=== PATIENT | female | born 1940 | race Caucasian/White ===

== ENCOUNTER → 2019-12-15 | Outpatient (CLI) | payer MEDICARE ==
[~2019-12-15] MED LIST: ACTONEL150 MG PO; COLACE100 MG PO; CYPROHEPTADINE H4 MG PO; DESLORATADINE5 MG PO; DIGOXIN125 MCG PO; DOCUSATE SODIU100 MG PO; HYDROXYCHLOROQ200 MG PO; LEVOTHYROXINE100 MC1 PO; LEVOTHYROXINE50 MCG PO; LISINOPRIL5 MG PO; METOPROLOL SUCC25 MG PO; NORCO 5-325 TA1 EACH PO; PLAVIX75 MG PO; PREDNISONE5 MG PO; TIZANIDINE HCL4 M1 PO; TOPROL XL25 MG PO; XARELTO20 MG PO; Z.0.BACTRIM DS TAB1 PO; Z.0.HYDROXYCHLOROQ20 PO; Z.0.LEVOTHYROXINE125 PO; Z.0.PREDNISONE5 MG PO
== END ==
LOC: RAD 11:01
PROVIDERS: ATTEND Internal Medicine
DX: I50.9 Heart failure, unspecified (principal)
CPT/HCPCS: 93306

== ENCOUNTER 2020-03-21 14:57 | Inpatient (IN) | payer MEDICARE ==
[~2020-03-21] VITALS: Ht 167.6 cm; Wt 46.8 kg
[2020-03-21 16:35] LABS: BASOPHILS % 0.3 % (0.0-1.0); EOSINOPHILS % 0.1 % (0.0-6.0); HEMATOCRIT 37.6 % (34.2-44.1); HEMOGLOBIN 11.2 g/dL (12.0-16.0); LYMPHOCYTES # (AUTO) 0.6 (1.0-3.2); LYMPHOCYTES % 4.8 % (18.0-39.1); MEAN CORPUSCULAR HEMOGLOBIN 29.9 pg (28-32); MEAN CORPUSCULAR HGB CONC 29.8 g/dL (31-35); MEAN CORPUSCULAR VOLUME 100.5 fL (81-99); MONOCYTES # (AUTO) 0.6 (0.2-0.8); MONOCYTES % 4.7 % (4.4-11.3); NEUTROPHILS # (AUTO) 12.1 (2.1-6.9); NEUTROPHILS % 89.6 % (38.7-80.0); PLATELET COUNT 308 x10e3/uL (140-360); RED BLOOD COUNT 3.74 x10e6/uL (3.6-5.1); RED CELL DISTRIBUTION WIDTH 13.2 % (11.7-14.4)
[2020-03-21 16:47] LABS: INR 1.12
[2020-03-21 16:55] LABS: ALBUMIN 3.1 g/dL (3.5-5.0); ALBUMIN/GLOBULIN RATIO 0.8 (0.8-2.0); ANION GAP 17.1 mmol/L (8-16); CALCIUM 8.9 mg/dL (8.4-10.2); CREATININE, SERUM 2.08 mg/dL (0.57-1.11); POTASSIUM 5.1 mmol/L (3.5-5.1)
[2020-03-21] MEDS ORDERED: DIATRIZOATE MEGL/DIATRIZOA SOD 30 ML BTL PO ONE (17:18)
[2020-03-21] MEDS ORDERED: DEXTROSE 50% SYRINGE 50 ML IV PRN (17:45)
[2020-03-21] MEDS ORDERED: FAMOTIDINE20 MG PO (19:16)
[2020-03-21] MEDS ORDERED: ARICEPT5 MG PO (19:16)
[2020-03-21] MEDS ORDERED: ULTRAM50 MG PO (19:16)
[2020-03-21] MEDS ORDERED: ALENDRONATE SOD70 MG PO (19:16)
[2020-03-21] MEDS ORDERED: CITRATE OF MAGNESIA 300ML BOTTLE PO ONE (20:00)
[2020-03-21] MEDS ORDERED: MINERAL OIL 132 ML BTL PR ONE (20:00)
[2020-03-21] MEDS ORDERED: SODIUM CHLORIDE 0.9% 1000ML 1,000 ML IV STA (22:06)
[2020-03-21 22:10] LABS: CREATINE KINASE MB 4.5 ng/mL (0-5.0)
[2020-03-21 23:08] LABS: CLARITY,URINE CLOUDY (CLEAR); COLOR,URINE AMBER (YELLOW); KETONES,URINE TRACE (NEGATIVE); LEUKOCYTE ESTERASE ,URINE SMALL (NEGATIVE); NITRITE,URINE NEGATIVE (NEGATIVE); PROTEIN,URINE DIPSTICK >=300 (NEGATIVE); URINE UROBILINOGEN 1 mg/dL (0.2 - 1)
[2020-03-21 23:16] LABS: BACTERIA,URINE FEW /HPF; EPITHELIAL CELLS,URINE MODERATE /LPF
[2020-03-21 23:17] LABS: YEAST,URINE MODERATE
[2020-03-21] MEDS: INSULIN LISPRO 100 UNIT/1 ML 3ML VIAL SQ SCH (23:23)
[2020-03-22] MEDS: CEFTRIAXONE SOD 1 GM/NS 50 ML 50 ML IV SCH (00:46)
[2020-03-22 01:19] LABS: CREATINE KINASE MB 3.7 ng/mL (0-5.0)
[2020-03-22 05:52] LABS: BASOPHILS % 0.2 % (0.0-1.0); HEMATOCRIT 32.5 % (34.2-44.1); HEMOGLOBIN 9.6 g/dL (12.0-16.0); LYMPHOCYTES % 8.6 % (18.0-39.1); MEAN CORPUSCULAR HEMOGLOBIN 29.5 pg (28-32); MEAN CORPUSCULAR HGB CONC 29.5 g/dL (31-35); MONOCYTES % 8.3 % (4.4-11.3); NEUTROPHILS # (AUTO) 9.8 (2.1-6.9); NEUTROPHILS % 82.2 % (38.7-80.0); PLATELET COUNT 262 x10e3/uL (140-360); RED BLOOD COUNT 3.25 x10e6/uL (3.6-5.1); RED CELL DISTRIBUTION WIDTH 13.3 % (11.7-14.4)
[2020-03-22 06:17] LABS: CREATINE KINASE MB 3.8 ng/mL (0-5.0)
[2020-03-22] MEDS: SODIUM CHLORIDE 0.9% 1000ML 1,000 ML IV SCH ×2 (06:37→19:03)
[2020-03-22] MEDS ORDERED: SODIUM CHLORIDE 0.9% 1000ML 1,000 ML ONE (06:41)
[2020-03-22 06:55] LABS: ALBUMIN 2.8 g/dL (3.5-5.0); ALBUMIN/GLOBULIN RATIO 0.8 (0.8-2.0); ANION GAP 16.2 mmol/L (8-16); CREATININE, SERUM 1.68 mg/dL (0.57-1.11); POTASSIUM 4.2 mmol/L (3.5-5.1)
[2020-03-22] MEDS: INSULIN LISPRO 100 UNIT/1 ML 3ML VIAL SQ SCH ×4 (07:57→20:59)
[2020-03-22 08:12] LABS: HYPOCHROMASIA SLIGHT; OVALOCYTES FEW; RBC MORPHOLOGY COMMENT NORMAL
[2020-03-22] MEDS: DIGOXIN 0.125 MG TAB PO SCH (08:54)
[2020-03-22] MEDS: PANTOPRAZOLE 40 MG 10ML VIAL IV SCH ×2 (08:54→17:01)
[2020-03-22] MEDS: METOPROLOL SUCCINATE 25 MG TAB XL PO SCH ×2 (08:55→17:01)
[2020-03-22] MEDS ORDERED: LEVOTHYROXINE SODIUM 50 MCG TAB PO SCH (09:00)
[2020-03-22] MEDS: TRAMADOL HCL 50 MG TAB PO SCH ×2 (12:00→17:01)
[2020-03-22] MEDS ORDERED: PEG (High)/E-LYTE SOLN 4,000 ML BTL PO ONE (12:45)
[2020-03-22 13:02] VITALS: BP 104/84
[2020-03-22 13:05] VITALS: BP 104/84
[2020-03-22 13:09] VITALS: BP 104/84
[2020-03-22 17:07] VITALS: BP 135/54
[2020-03-22 20:00] VITALS: BP 150/71
[2020-03-22 21:00] VITALS: BP 150/71
[2020-03-22] MEDS: DONEPEZIL HCL 5 MG TAB PO SCH (21:44)
[2020-03-23] VITALS (8 sets, daily range): BP systolic 103–153; BP diastolic 56–110
[2020-03-23] MEDS: CEFTRIAXONE SOD 1 GM/NS 50 ML 50 ML IV SCH (00:10)
[2020-03-23] MEDS ORDERED: BISACODYL 5 MG TAB EC PO ONE ×4 (02:15→15:00)
[2020-03-23] MEDS: LEVOTHYROXINE SODIUM 100 MCG TAB PO SCH (05:44)
[2020-03-23] MEDS: TRAMADOL HCL 50 MG TAB PO SCH ×4 (05:44→17:06)
[2020-03-23 05:46] LABS: BASOPHILS % 0.2 % (0.0-1.0); EOSINOPHILS # (AUTO) 0.1 (0.0-0.4); EOSINOPHILS % 0.8 % (0.0-6.0); HEMATOCRIT 28.3 % (34.2-44.1); HEMOGLOBIN 8.3 g/dL (12.0-16.0); LYMPHOCYTES # (AUTO) 0.7 (1.0-3.2); LYMPHOCYTES % 8.2 % (18.0-39.1); MEAN CORPUSCULAR HEMOGLOBIN 30.2 pg (28-32); MEAN CORPUSCULAR HGB CONC 29.3 g/dL (31-35); MEAN CORPUSCULAR VOLUME 102.9 fL (81-99); MONOCYTES # (AUTO) 0.8 (0.2-0.8); MONOCYTES % 9.8 % (4.4-11.3); NEUTROPHILS # (AUTO) 6.7 (2.1-6.9); NEUTROPHILS % 80.4 % (38.7-80.0); PLATELET COUNT 226 x10e3/uL (140-360); RED BLOOD COUNT 2.75 x10e6/uL (3.6-5.1); RED CELL DISTRIBUTION WIDTH 13.2 % (11.7-14.4)
[2020-03-23] MEDS: SODIUM CHLORIDE 0.9% 1000ML 1,000 ML IV SCH (07:09)
[2020-03-23] MEDS: INSULIN LISPRO 100 UNIT/1 ML 3ML VIAL SQ SCH ×4 (07:30→20:28)
[2020-03-23 08:01] LABS: FERRITIN 206.07 ng/mL (4.63-204.00)
[2020-03-23 08:12] LABS: ANION GAP 13.1 mmol/L (8-16); CALCIUM 8.3 mg/dL (8.4-10.2); CREATININE, SERUM 1.09 mg/dL (0.57-1.11); POTASSIUM 4.1 mmol/L (3.5-5.1)
[2020-03-23] MEDS: DIGOXIN 0.125 MG TAB PO SCH (08:31)
[2020-03-23] MEDS: PANTOPRAZOLE 40 MG 10ML VIAL IV SCH ×2 (08:31→16:41)
[2020-03-23] MEDS: DEXTROSE 5%/0.45% SOD CHL 1,000 ML IV SCH ×2 (08:31→21:55)
[2020-03-23] MEDS: METOPROLOL SUCCINATE 25 MG TAB XL PO SCH ×2 (08:32→16:42)
[2020-03-23 09:01] LABS: BAND NEUTROPHILS % (MANUAL) 2 %; EOSINOPHILS % (MANUAL) 1 % (0-7); LYMPHOCYTES % (MANUAL) 5 % (19-48); MONOCYTES % (MANUAL) 1 % (3.4-9.0); NEUTROPHILS % (MANUAL) 89 % (40-74); PROMYELOCYTES % (MANUAL) 2 % (0-0); TOXIC GRANULATION SLIGHT
[2020-03-23 09:02] LABS: ANISOCYTOSIS SLIGHT; RBC MORPHOLOGY COMMENT ABNORMAL
[2020-03-23 09:03] LABS: ELLIPTOCYTE, RBC SLIGHT
[2020-03-23 09:04] LABS: HYPOCHROMASIA SLIGHT; PLATELET ESTIMATE ADEQUATE; PLATELET MORPHOLOGY COMMENT FEW LARGE
[2020-03-23] MEDS: BALSAM PERU/CASTOR OIL 60 GM OINT...G. TP SCH (09:35)
[2020-03-23] MEDS: METOCLOPRAMIDE HCL 10 MG/2ML VIAL IV SCH ×2 (12:27→17:06)
[2020-03-23] MEDS ORDERED: CITRATE OF MAGNESIA 300ML BOTTLE PO ONE (18:00)
[2020-03-23] MEDS: DONEPEZIL HCL 5 MG TAB PO SCH (21:35)
[2020-03-24] VITALS (8 sets, daily range): BP systolic 117–144; BP diastolic 58–99
[2020-03-24 00:56] LABS: BASOPHILS % 0.1 % (0.0-1.0); EOSINOPHILS % 0.6 % (0.0-6.0); HEMATOCRIT 29.9 % (34.2-44.1); HEMOGLOBIN 8.9 g/dL (12.0-16.0); LYMPHOCYTES # (AUTO) 0.6 (1.0-3.2); MEAN CORPUSCULAR HEMOGLOBIN 29.7 pg (28-32); MEAN CORPUSCULAR HGB CONC 29.8 g/dL (31-35); MEAN CORPUSCULAR VOLUME 99.7 fL (81-99); MONOCYTES # (AUTO) 0.6 (0.2-0.8); MONOCYTES % 8.6 % (4.4-11.3); NEUTROPHILS # (AUTO) 5.6 (2.1-6.9); NEUTROPHILS % 80.8 % (38.7-80.0); PLATELET COUNT 226 x10e3/uL (140-360); RED CELL DISTRIBUTION WIDTH 13.2 % (11.7-14.4)
[2020-03-24 01:13] LABS: CALCIUM 8.3 mg/dL (8.4-10.2); CREATININE, SERUM 0.92 mg/dL (0.57-1.11)
[2020-03-24 01:34] LABS: ABG PCO2 43 mmHg (35-45); ABG PH 7.38 (7.35-7.45)
[2020-03-24 01:35] LABS: ABG HCO3 26 mmol/L (22-26); ABG PO2 292 mmHg (80-105); ABG TCO2 27
[2020-03-24] MEDS: CEFTRIAXONE SOD 1 GM/NS 50 ML 50 ML IV SCH (01:50)
[2020-03-24] MEDS ORDERED: POTASSIUM CHLORIDE 20MEQ/100ML 100 ML IV ONE (03:45)
[2020-03-24] MEDS: LEVOTHYROXINE SODIUM 100 MCG TAB PO SCH (04:55)
[2020-03-24] MEDS: TRAMADOL HCL 50 MG TAB PO SCH ×4 (04:55→18:00)
[2020-03-24] MEDS: METOCLOPRAMIDE HCL 10 MG/2ML VIAL IV SCH ×4 (04:55→17:30)
[2020-03-24 06:51] LABS: BASOPHILS % 0.2 % (0.0-1.0); EOSINOPHILS # (AUTO) 0.1 (0.0-0.4); EOSINOPHILS % 1.2 % (0.0-6.0); HEMATOCRIT 26.6 % (34.2-44.1); HEMOGLOBIN 7.9 g/dL (12.0-16.0); LYMPHOCYTES # (AUTO) 0.8 (1.0-3.2); MEAN CORPUSCULAR HEMOGLOBIN 29.5 pg (28-32); MEAN CORPUSCULAR HGB CONC 29.7 g/dL (31-35); MEAN CORPUSCULAR VOLUME 99.3 fL (81-99); MONOCYTES # (AUTO) 0.7 (0.2-0.8); MONOCYTES % 10.4 % (4.4-11.3); NEUTROPHILS # (AUTO) 4.9 (2.1-6.9); NEUTROPHILS % 75.1 % (38.7-80.0); PLATELET COUNT 222 x10e3/uL (140-360); RED BLOOD COUNT 2.68 x10e6/uL (3.6-5.1); RED CELL DISTRIBUTION WIDTH 13.2 % (11.7-14.4)
[2020-03-24 07:09] LABS: ANION GAP 8.5 mmol/L (8-16); BLOOD UREA NITROGEN 24 mg/dL (7-26); BUN/CREATININE RATIO 30 (6-25); CALCIUM 7.7 mg/dL (8.4-10.2); CARBON DIOXIDE 25 mmol/L (22-29); CHLORIDE 114 mmol/L (98-107); EST GLOMERULAR FILTRATION RATE > 60 ML/MIN (60-); GLUCOSE 94 mg/dL (74-118); POTASSIUM 3.5 mmol/L (3.5-5.1); SODIUM 144 mmol/L (136-145)
[2020-03-24] MEDS: INSULIN LISPRO 100 UNIT/1 ML 3ML VIAL SQ SCH ×4 (07:30→20:02)
[2020-03-24] MEDS: BALSAM PERU/CASTOR OIL 60 GM OINT...G. TP SCH (09:00)
[2020-03-24 09:15] LABS: HYPOCHROMASIA SLIGHT
[2020-03-24 09:16] LABS: OVALOCYTES FEW; POIKILOCYTOSIS SLIGHT
[2020-03-24 09:17] LABS: PLATELET ESTIMATE ADEQUATE; PLATELET MORPHOLOGY COMMENT NORMAL; RBC MORPHOLOGY COMMENT ABNORMAL
[2020-03-24] MEDS: PANTOPRAZOLE 40 MG 10ML VIAL IV SCH ×2 (09:46→17:30)
[2020-03-24] MEDS: FLUCONAZOLE 100 MG/NS 50 ML 50 ML IV SCH (09:47)
[2020-03-24] MEDS: IRON SUCROSE 100 MG in SODIUM CHLORIDE 0.9% 100 ML 100 ML IV SCH (10:30)
[2020-03-24] MEDS: DEXTROSE 5%/0.45% SOD CHL 1,000 ML IV SCH (11:10)
[2020-03-24] MEDS: DIGOXIN 0.125 MG TAB PO SCH (12:15)
[2020-03-24] MEDS: METOPROLOL SUCCINATE 25 MG TAB XL PO SCH ×2 (12:30→20:30)
[2020-03-24] MEDS: DONEPEZIL HCL 5 MG TAB PO SCH (20:02)
[2020-03-24] MEDS ORDERED: CITRATE OF MAGNESIA 300ML BOTTLE PO ONE (21:15)
[2020-03-24] MEDS ORDERED: BISACODYL 5 MG TAB EC PO ONE ×2 (21:15→22:15)
[2020-03-25] VITALS (8 sets, daily range): BP systolic 100–136; BP diastolic 58–89
[2020-03-25] MEDS: CEFTRIAXONE SOD 1 GM/NS 50 ML 50 ML IV SCH (00:38)
[2020-03-25] MEDS: METOCLOPRAMIDE HCL 10 MG/2ML VIAL IV SCH ×4 (00:38→18:07)
[2020-03-25] MEDS: DEXTROSE 5%/0.45% SOD CHL 1,000 ML IV SCH ×2 (05:10→13:11)
[2020-03-25] MEDS: LEVOTHYROXINE SODIUM 100 MCG TAB PO SCH (05:24)
[2020-03-25] MEDS: TRAMADOL HCL 50 MG TAB PO SCH ×3 (05:24→12:00)
[2020-03-25 07:25] LABS: BASOPHILS % 0.3 % (0.0-1.0); EOSINOPHILS # (AUTO) 0.1 (0.0-0.4); EOSINOPHILS % 1.3 % (0.0-6.0); HEMATOCRIT 28.9 % (34.2-44.1); HEMOGLOBIN 8.6 g/dL (12.0-16.0); LYMPHOCYTES % 10.5 % (18.0-39.1); MEAN CORPUSCULAR HEMOGLOBIN 29.7 pg (28-32); MEAN CORPUSCULAR HGB CONC 29.8 g/dL (31-35); MEAN CORPUSCULAR VOLUME 99.7 fL (81-99); MONOCYTES # (AUTO) 0.8 (0.2-0.8); MONOCYTES % 8.7 % (4.4-11.3); NEUTROPHILS # (AUTO) 7.5 (2.1-6.9); NEUTROPHILS % 77.9 % (38.7-80.0); PLATELET COUNT 211 x10e3/uL (140-360); RED CELL DISTRIBUTION WIDTH 13.2 % (11.7-14.4)
[2020-03-25] MEDS: INSULIN LISPRO 100 UNIT/1 ML 3ML VIAL SQ SCH ×4 (07:30→20:45)
[2020-03-25 07:46] LABS: ANION GAP 9.3 mmol/L (8-16); BLOOD UREA NITROGEN 16 mg/dL (7-26); BUN/CREATININE RATIO 21 (6-25); CARBON DIOXIDE 27 mmol/L (22-29); CHLORIDE 110 mmol/L (98-107); CREATININE, SERUM 0.78 mg/dL (0.57-1.11); EST GLOMERULAR FILTRATION RATE > 60 ML/MIN (60-); GLUCOSE 96 mg/dL (74-118); POTASSIUM 3.3 mmol/L (3.5-5.1); SODIUM 143 mmol/L (136-145)
[2020-03-25 08:16] LABS: MAGNESIUM 1.8 MG/DL (1.3-2.1); PHOSPHORUS 1.9 MG/DL (2.3-4.7)
[2020-03-25] MEDS: FLUCONAZOLE 100 MG/NS 50 ML 50 ML IV SCH (09:00)
[2020-03-25] MEDS: BALSAM PERU/CASTOR OIL 60 GM OINT...G. TP SCH (09:36)
[2020-03-25] MEDS: DIGOXIN 0.125 MG TAB PO SCH (09:37)
[2020-03-25] MEDS: PANTOPRAZOLE 40 MG 10ML VIAL IV SCH ×2 (09:40→17:29)
[2020-03-25] MEDS: METOPROLOL SUCCINATE 25 MG TAB XL PO SCH ×2 (10:30→17:30)
[2020-03-25] MEDS: IRON SUCROSE 100 MG in SODIUM CHLORIDE 0.9% 100 ML 100 ML IV SCH (11:00)
[2020-03-25] MEDS ORDERED: DEXTROSE 50% SYRINGE 50 ML IV PRN (17:00)
[2020-03-25] MEDS ORDERED: TRAMADOL HCL 50 MG TAB PO PRN (17:00)
[2020-03-25] MEDS ORDERED: POTASSIUM CHLORIDE 10MEQ EA PO ONE (17:30)
[2020-03-25] MEDS ORDERED: PHOSPHORUS 250 MG TAB PO SCH (17:30)
[2020-03-25] MEDS ORDERED: CITRATE OF MAGNESIA 300ML BOTTLE PO ONE (18:00)
[2020-03-25] MEDS: DONEPEZIL HCL 5 MG TAB PO SCH (21:34)
[2020-03-26] VITALS (9 sets, daily range): BP systolic 114–144; BP diastolic 70–86
[2020-03-26] MEDS: METOCLOPRAMIDE HCL 10 MG/2ML VIAL IV SCH ×4 (00:13→17:50)
[2020-03-26] MEDS: CEFTRIAXONE SOD 1 GM/NS 50 ML 50 ML IV SCH (00:13)
[2020-03-26] MEDS ORDERED: BISACODYL 5 MG TAB EC PO ONE ×2 (01:45→03:00)
[2020-03-26] MEDS: DEXTROSE 5%/0.45% SOD CHL 1,000 ML IV SCH ×3 (03:14→14:34)
[2020-03-26] MEDS ORDERED: CITRATE OF MAGNESIA 300ML BOTTLE PO ONE (05:00)
[2020-03-26] MEDS: LEVOTHYROXINE SODIUM 100 MCG TAB PO SCH (05:05)
[2020-03-26 06:04] LABS: BASOPHILS # (AUTO) 0.1 (0.0-0.1); BASOPHILS % 0.4 % (0.0-1.0); EOSINOPHILS # (AUTO) 0.1 (0.0-0.4); HEMATOCRIT 28.9 % (34.2-44.1); HEMOGLOBIN 8.7 g/dL (12.0-16.0); LYMPHOCYTES # (AUTO) 1.1 (1.0-3.2); LYMPHOCYTES % 9.4 % (18.0-39.1); MEAN CORPUSCULAR HEMOGLOBIN 29.9 pg (28-32); MEAN CORPUSCULAR HGB CONC 30.1 g/dL (31-35); MEAN CORPUSCULAR VOLUME 99.3 fL (81-99); MONOCYTES # (AUTO) 0.9 (0.2-0.8); MONOCYTES % 7.6 % (4.4-11.3); NEUTROPHILS # (AUTO) 9.3 (2.1-6.9); NEUTROPHILS % 79.5 % (38.7-80.0); PLATELET COUNT 192 x10e3/uL (140-360); RED BLOOD COUNT 2.91 x10e6/uL (3.6-5.1)
[2020-03-26 06:26] LABS: ALANINE AMINOTRANSFERASE 13 IU/L (0-55); ALBUMIN 2.1 g/dL (3.5-5.0); ALBUMIN/GLOBULIN RATIO 0.8 (0.8-2.0); ALKALINE PHOSPHATASE 121 IU/L (40-150); ANION GAP 9.4 mmol/L (8-16); BLOOD UREA NITROGEN 11 mg/dL (7-26); BUN/CREATININE RATIO 15 (6-25); CALCIUM 7.6 mg/dL (8.4-10.2); CARBON DIOXIDE 21 mmol/L (22-29); CHLORIDE 111 mmol/L (98-107); CREATININE, SERUM 0.72 mg/dL (0.57-1.11); EST GLOMERULAR FILTRATION RATE > 60 ML/MIN (60-); POTASSIUM 3.4 mmol/L (3.5-5.1); SODIUM 138 mmol/L (136-145)
[2020-03-26 06:34] LABS: GLUCOSE 55 mg/dL (74-118)
[2020-03-26] MEDS: INSULIN LISPRO 100 UNIT/1 ML 3ML VIAL SQ SCH ×4 (07:30→21:00)
[2020-03-26] MEDS ORDERED: POTASSIUM CHLORIDE 20 MEQ TAB CR PO STA (07:50)
[2020-03-26] MEDS: BALSAM PERU/CASTOR OIL 60 GM OINT...G. TP SCH (08:32)
[2020-03-26] MEDS: PANTOPRAZOLE 40 MG 10ML VIAL IV SCH ×2 (08:39→16:04)
[2020-03-26] MEDS: DIGOXIN 0.125 MG TAB PO SCH (08:40)
[2020-03-26] MEDS: METOPROLOL SUCCINATE 25 MG TAB XL PO SCH ×2 (08:40→16:05)
[2020-03-26] MEDS ORDERED: KETAMINE HCL INJ 50 MG/ML 10 ML VIAL ONE (12:49)
[2020-03-26] MEDS ORDERED: PROPOFOL IV EMULSION 10 MG/ML 20 ML VIAL ONE (12:56)
[2020-03-26] MEDS ORDERED: GLUCAGON FOR INJ 1 MG VIAL ONE (12:56)
[2020-03-26] MEDS ORDERED: LIDOCAINE HCL 2% LOCAL INJ 5 ML SDV VIAL INJ ONE (12:56)
[2020-03-26] MEDS: ZINC OXIDE / BALSAM PERU 30 GM TUBE TOP SCH ×2 (14:34→21:35)
[2020-03-26] MEDS: FLUCONAZOLE 100 MG/NS 50 ML 50 ML IV SCH (14:53)
[2020-03-26] MEDS: IRON SUCROSE 100 MG in SODIUM CHLORIDE 0.9% 100 ML 100 ML IV SCH (15:25)
[2020-03-26] MEDS: DONEPEZIL HCL 5 MG TAB PO SCH (21:41)
[2020-03-27] VITALS (8 sets, daily range): BP systolic 90–131; BP diastolic 61–90
[2020-03-27] MEDS: CEFTRIAXONE SOD 1 GM/NS 50 ML 50 ML IV SCH
[2020-03-27] MEDS: DEXTROSE 5%/0.45% SOD CHL 1,000 ML IV SCH ×3 (00:20→20:20)
[2020-03-27] MEDS: METOCLOPRAMIDE HCL 10 MG/2ML VIAL IV SCH ×4 (01:59→18:13)
[2020-03-27] MEDS: LEVOTHYROXINE SODIUM 100 MCG TAB PO SCH (05:36)
[2020-03-27 06:17] LABS: ANION GAP 9.6 mmol/L (8-16); BLOOD UREA NITROGEN 20 mg/dL (7-26); BUN/CREATININE RATIO 26 (6-25); CALCIUM 7.6 mg/dL (8.4-10.2); CARBON DIOXIDE 22 mmol/L (22-29); CHLORIDE 110 mmol/L (98-107); CREATININE, SERUM 0.78 mg/dL (0.57-1.11); EST GLOMERULAR FILTRATION RATE > 60 ML/MIN (60-); GLUCOSE 95 mg/dL (74-118); MAGNESIUM 1.5 MG/DL (1.3-2.1); POTASSIUM 3.6 mmol/L (3.5-5.1); SODIUM 138 mmol/L (136-145)
[2020-03-27] MEDS: INSULIN LISPRO 100 UNIT/1 ML 3ML VIAL SQ SCH ×4 (07:30→21:00)
[2020-03-27] MEDS: BALSAM PERU/CASTOR OIL 60 GM OINT...G. TP SCH (09:04)
[2020-03-27] MEDS: DIGOXIN 0.125 MG TAB PO SCH (09:04)
[2020-03-27] MEDS: METOPROLOL SUCCINATE 25 MG TAB XL PO SCH ×2 (09:04→17:00)
[2020-03-27] MEDS: PANTOPRAZOLE 40 MG 10ML VIAL IV SCH ×2 (09:04→15:23)
[2020-03-27] MEDS: ZINC OXIDE / BALSAM PERU 30 GM TUBE TOP SCH ×2 (09:04→21:10)
[2020-03-27] MEDS: FLUCONAZOLE 100 MG/NS 50 ML 50 ML IV SCH (15:16)
[2020-03-27] MEDS: IRON SUCROSE 100 MG in SODIUM CHLORIDE 0.9% 100 ML 100 ML IV SCH (16:04)
[2020-03-27] MEDS: DONEPEZIL HCL 5 MG TAB PO SCH (23:26)
[2020-03-28] VITALS (8 sets, daily range): BP systolic 129–150; BP diastolic 76–92
[2020-03-28] MEDS: CEFTRIAXONE SOD 1 GM/NS 50 ML 50 ML IV SCH
[2020-03-28] MEDS: METOCLOPRAMIDE HCL 10 MG/2ML VIAL IV SCH ×4 (02:00→17:41)
[2020-03-28] MEDS: LEVOTHYROXINE SODIUM 100 MCG TAB PO SCH ×2 (05:49→06:09)
[2020-03-28] MEDS: DEXTROSE 5%/0.45% SOD CHL 1,000 ML IV SCH ×2 (06:16→17:40)
[2020-03-28] MEDS: INSULIN LISPRO 100 UNIT/1 ML 3ML VIAL SQ SCH ×4 (07:27→21:00)
[2020-03-28] MEDS: BALSAM PERU/CASTOR OIL 60 GM OINT...G. TP SCH (09:44)
[2020-03-28] MEDS: DIGOXIN 0.125 MG TAB PO SCH (09:46)
[2020-03-28] MEDS: PANTOPRAZOLE 40 MG 10ML VIAL IV SCH ×2 (09:46→17:40)
[2020-03-28] MEDS: METOPROLOL SUCCINATE 25 MG TAB XL PO SCH ×2 (09:55→17:41)
[2020-03-28] MEDS: ZINC OXIDE / BALSAM PERU 30 GM TUBE TOP SCH ×2 (09:55→21:00)
[2020-03-28 10:01] LABS: ANION GAP 12.6 mmol/L (8-16); BLOOD UREA NITROGEN 17 mg/dL (7-26); BUN/CREATININE RATIO 21 (6-25); CALCIUM 7.7 mg/dL (8.4-10.2); CARBON DIOXIDE 20 mmol/L (22-29); CHLORIDE 109 mmol/L (98-107); EST GLOMERULAR FILTRATION RATE > 60 ML/MIN (60-); GLUCOSE 82 mg/dL (74-118); MAGNESIUM 1.5 MG/DL (1.3-2.1); POTASSIUM 3.6 mmol/L (3.5-5.1); SODIUM 138 mmol/L (136-145)
[2020-03-28] MEDS: FLUCONAZOLE 100 MG/NS 50 ML 50 ML IV SCH (17:39)
[2020-03-28] MEDS: IRON SUCROSE 100 MG in SODIUM CHLORIDE 0.9% 100 ML 100 ML IV SCH (17:40)
[2020-03-28] MEDS: DONEPEZIL HCL 5 MG TAB PO SCH (21:46)
[2020-03-29] VITALS (7 sets, daily range): BP systolic 106–130; BP diastolic 51–65
[2020-03-29] MEDS: CEFTRIAXONE SOD 1 GM/NS 50 ML 50 ML IV SCH (01:23)
[2020-03-29] MEDS: METOCLOPRAMIDE HCL 10 MG/2ML VIAL IV SCH ×4 (01:23→17:01)
[2020-03-29] MEDS: DEXTROSE 5%/0.45% SOD CHL 1,000 ML IV SCH ×3 (05:10→22:23)
[2020-03-29] MEDS: LEVOTHYROXINE SODIUM 100 MCG TAB PO SCH (06:18)
[2020-03-29] MEDS ORDERED: DIFLUCAN100 MG PO (06:34)
[2020-03-29] MEDS ORDERED: PANTOPRAZOLE SO40 MG PO (06:34)
[2020-03-29] MEDS ORDERED: FLANDERS BUTTOC30 GM TOP (06:34)
[2020-03-29] MEDS ORDERED: KEFLEX500 MG PO (06:34)
[2020-03-29] MEDS: INSULIN LISPRO 100 UNIT/1 ML 3ML VIAL SQ SCH ×4 (07:30→21:00)
[2020-03-29] MEDS: DIGOXIN 0.125 MG TAB PO SCH (09:00)
[2020-03-29] MEDS: ZINC OXIDE / BALSAM PERU 30 GM TUBE TOP SCH ×2 (09:00→22:22)
[2020-03-29] MEDS: PANTOPRAZOLE 40 MG 10ML VIAL IV SCH ×2 (09:00→17:00)
[2020-03-29] MEDS: METOPROLOL SUCCINATE 25 MG TAB XL PO SCH ×2 (09:00→17:01)
[2020-03-29] MEDS: BALSAM PERU/CASTOR OIL 60 GM OINT...G. TP SCH ×2 (13:33)
[2020-03-29] MEDS: FLUCONAZOLE 100 MG/NS 50 ML 50 ML IV SCH (16:59)
[2020-03-29] MEDS: IRON SUCROSE 100 MG in SODIUM CHLORIDE 0.9% 100 ML 100 ML IV SCH (17:00)
[2020-03-29] MEDS ORDERED: TRAMADOL HCL 50 MG TAB PO PRN (20:00)
[2020-03-29] MEDS: DONEPEZIL HCL 5 MG TAB PO SCH (22:22)
[2020-03-29] MEDS: ACETAMINOPHEN 325 MG TAB PO PRN (22:24)
[2020-03-30] VITALS (8 sets, daily range): BP systolic 91–144; BP diastolic 41–74
[2020-03-30] MEDS: METOCLOPRAMIDE HCL 10 MG/2ML VIAL IV SCH ×4 (00:39→18:00)
[2020-03-30] MEDS: CEFTRIAXONE SOD 1 GM/NS 50 ML 50 ML IV SCH (00:39)
[2020-03-30] MEDS: LEVOTHYROXINE SODIUM 100 MCG TAB PO SCH (05:47)
[2020-03-30] MEDS: INSULIN LISPRO 100 UNIT/1 ML 3ML VIAL SQ SCH ×4 (07:30→21:00)
[2020-03-30] MEDS: DEXTROSE 5%/0.45% SOD CHL 1,000 ML IV SCH ×2 (08:20→15:17)
[2020-03-30] MEDS: ZINC OXIDE / BALSAM PERU 30 GM TUBE TOP SCH ×2 (09:42→21:40)
[2020-03-30] MEDS: BALSAM PERU/CASTOR OIL 60 GM OINT...G. TP SCH ×2 (09:43)
[2020-03-30] MEDS: PANTOPRAZOLE 40 MG 10ML VIAL IV SCH ×2 (09:43→15:17)
[2020-03-30] MEDS: METOPROLOL SUCCINATE 25 MG TAB XL PO SCH ×2 (09:43→15:18)
[2020-03-30] MEDS: DIGOXIN 0.125 MG TAB PO SCH (09:43)
[2020-03-30] MEDS ORDERED: PROPOFOL IV EMULSION 10 MG/ML 20 ML VIAL ONE (13:09)
[2020-03-30] MEDS ORDERED: LIDOCAINE HCL 2% LOCAL INJ 5 ML SDV VIAL INJ ONE (13:09)
[2020-03-30] MEDS: FLUCONAZOLE 100 MG/NS 50 ML 50 ML IV SCH (15:17)
[2020-03-30] MEDS: IRON SUCROSE 100 MG in SODIUM CHLORIDE 0.9% 100 ML 100 ML IV SCH (15:46)
[2020-03-30] MEDS: DONEPEZIL HCL 5 MG TAB PO SCH (21:40)
[2020-03-31] VITALS (8 sets, daily range): BP systolic 117–133; BP diastolic 59–80
[2020-03-31] MEDS: CEFTRIAXONE SOD 1 GM/NS 50 ML 50 ML IV SCH ×2 (00:25→23:54)
[2020-03-31] MEDS: DEXTROSE 5%/0.45% SOD CHL 1,000 ML IV SCH ×3 (04:57→23:55)
[2020-03-31] MEDS: LEVOTHYROXINE SODIUM 100 MCG TAB PO SCH (05:30)
[2020-03-31] MEDS: METOCLOPRAMIDE HCL 10 MG/2ML VIAL IV SCH ×5 (05:30→23:54)
[2020-03-31] MEDS: INSULIN LISPRO 100 UNIT/1 ML 3ML VIAL SQ SCH ×4 (07:30→20:32)
[2020-03-31] MEDS: DIGOXIN 0.125 MG TAB PO SCH (09:04)
[2020-03-31] MEDS: METOPROLOL SUCCINATE 25 MG TAB XL PO SCH ×2 (09:04→16:46)
[2020-03-31] MEDS: PANTOPRAZOLE 40 MG 10ML VIAL IV SCH ×2 (09:04→16:45)
[2020-03-31] MEDS: BALSAM PERU/CASTOR OIL 60 GM OINT...G. TP SCH ×2 (09:04)
[2020-03-31] MEDS: ZINC OXIDE / BALSAM PERU 30 GM TUBE TOP SCH ×2 (09:09→20:32)
[2020-03-31] MEDS: FLUCONAZOLE 100 MG/NS 50 ML 50 ML IV SCH (15:21)
[2020-03-31 16:29] LABS: BASOPHILS # (AUTO) 0.1 (0.0-0.1); BASOPHILS % 0.5 % (0.0-1.0); EOSINOPHILS # (AUTO) 0.1 (0.0-0.4); EOSINOPHILS % 0.3 % (0.0-6.0); HEMATOCRIT 31.5 % (34.2-44.1); HEMOGLOBIN 9.5 g/dL (12.0-16.0); LYMPHOCYTES # (AUTO) 0.9 (1.0-3.2); LYMPHOCYTES % 5.5 % (18.0-39.1); MEAN CORPUSCULAR HEMOGLOBIN 30.1 pg (28-32); MEAN CORPUSCULAR HGB CONC 30.2 g/dL (31-35); MEAN CORPUSCULAR VOLUME 99.7 fL (81-99); NEUTROPHILS # (AUTO) 14.3 (2.1-6.9); NEUTROPHILS % 87.1 % (38.7-80.0); PLATELET COUNT 142 x10e3/uL (140-360); RED BLOOD COUNT 3.16 x10e6/uL (3.6-5.1); RED CELL DISTRIBUTION WIDTH 13.7 % (11.7-14.4)
[2020-03-31] MEDS: IRON SUCROSE 100 MG in SODIUM CHLORIDE 0.9% 100 ML 100 ML IV SCH (16:46)
[2020-03-31 16:52] LABS: ANION GAP 13.4 mmol/L (8-16); BLOOD UREA NITROGEN 10 mg/dL (7-26); BUN/CREATININE RATIO 13 (6-25); CALCIUM 7.5 mg/dL (8.4-10.2); CARBON DIOXIDE 21 mmol/L (22-29); CHLORIDE 101 mmol/L (98-107); CREATININE, SERUM 0.78 mg/dL (0.57-1.11); EST GLOMERULAR FILTRATION RATE > 60 ML/MIN (60-); GLUCOSE 65 mg/dL (74-118); POTASSIUM 3.4 mmol/L (3.5-5.1); SODIUM 132 mmol/L (136-145)
[2020-03-31 17:05] LABS: MAGNESIUM 1.3 MG/DL (1.3-2.1); PHOSPHORUS 1.7 MG/DL (2.3-4.7)
[2020-03-31] MEDS ORDERED: MAGNESIUM SULFATE 2GM/50ML 50 ML IV ONE (20:00)
[2020-03-31] MEDS: DONEPEZIL HCL 5 MG TAB PO SCH (20:32)
[2020-04-01] VITALS (8 sets, daily range): BP systolic 90–151; BP diastolic 49–73
[2020-04-01] MEDS: METOCLOPRAMIDE HCL 10 MG/2ML VIAL IV SCH ×4 (05:33→23:40)
[2020-04-01] MEDS: LEVOTHYROXINE SODIUM 100 MCG TAB PO SCH (05:33)
[2020-04-01] MEDS: INSULIN LISPRO 100 UNIT/1 ML 3ML VIAL SQ SCH ×4 (08:30→20:58)
[2020-04-01] MEDS: METOPROLOL SUCCINATE 25 MG TAB XL PO SCH ×2 (09:00→18:00)
[2020-04-01] MEDS: DIGOXIN 0.125 MG TAB PO SCH (09:00)
[2020-04-01] MEDS: PANTOPRAZOLE 40 MG 10ML VIAL IV SCH ×2 (09:11→17:55)
[2020-04-01] MEDS: ZINC OXIDE / BALSAM PERU 30 GM TUBE TOP SCH ×2 (09:12→20:58)
[2020-04-01] MEDS: BALSAM PERU/CASTOR OIL 60 GM OINT...G. TP SCH ×2 (09:12→09:13)
[2020-04-01] MEDS: DEXTROSE 5%/0.45% SOD CHL 1,000 ML IV SCH ×2 (10:20→12:24)
[2020-04-01] MEDS: IRON SUCROSE 100 MG in SODIUM CHLORIDE 0.9% 100 ML 100 ML IV SCH (18:00)
[2020-04-01] MEDS: DONEPEZIL HCL 5 MG TAB PO SCH (20:57)
[2020-04-02] VITALS (8 sets, daily range): BP systolic 106–136; BP diastolic 46–101
[2020-04-02] MEDS ORDERED: MAGNESIUM HYDROXIDE 30 ML UDC PO ONE (04:45)
[2020-04-02] MEDS: LEVOTHYROXINE SODIUM 100 MCG TAB PO SCH (05:04)
[2020-04-02] MEDS: METOCLOPRAMIDE HCL 10 MG/2ML VIAL IV SCH ×3 (05:04→17:12)
[2020-04-02] MEDS: INSULIN LISPRO 100 UNIT/1 ML 3ML VIAL SQ SCH ×4 (07:30→20:14)
[2020-04-02] MEDS: ZINC OXIDE / BALSAM PERU 30 GM TUBE TOP SCH ×2 (09:00→21:42)
[2020-04-02] MEDS: BALSAM PERU/CASTOR OIL 60 GM OINT...G. TP SCH ×2 (09:00)
[2020-04-02] MEDS: METOPROLOL SUCCINATE 25 MG TAB XL PO SCH ×2 (10:26→17:12)
[2020-04-02] MEDS: DIGOXIN 0.125 MG TAB PO SCH (10:26)
[2020-04-02] MEDS: PANTOPRAZOLE 40 MG 10ML VIAL IV SCH ×2 (10:26→17:11)
[2020-04-02 10:40] LABS: BASOPHILS # (AUTO) 0.1 (0.0-0.1); BASOPHILS % 0.3 % (0.0-1.0); EOSINOPHILS % 0.1 % (0.0-6.0); HEMATOCRIT 24.7 % (34.2-44.1); HEMOGLOBIN 7.7 g/dL (12.0-16.0); LYMPHOCYTES # (AUTO) 0.9 (1.0-3.2); LYMPHOCYTES % 4.8 % (18.0-39.1); MEAN CORPUSCULAR HEMOGLOBIN 29.2 pg (28-32); MEAN CORPUSCULAR HGB CONC 31.2 g/dL (31-35); MEAN CORPUSCULAR VOLUME 93.6 fL (81-99); MONOCYTES % 5.7 % (4.4-11.3); NEUTROPHILS # (AUTO) 16.1 (2.1-6.9); NEUTROPHILS % 88.1 % (38.7-80.0); PLATELET COUNT 122 x10e3/uL (140-360); RED BLOOD COUNT 2.64 x10e6/uL (3.6-5.1); RED CELL DISTRIBUTION WIDTH 14.3 % (11.7-14.4)
[2020-04-02 10:55] LABS: BLOOD UREA NITROGEN 18 mg/dL (7-26); BUN/CREATININE RATIO 27 (6-25); CALCIUM 7.1 mg/dL (8.4-10.2); CARBON DIOXIDE 21 mmol/L (22-29); CHLORIDE 101 mmol/L (98-107); CREATININE, SERUM 0.67 mg/dL (0.57-1.11); EST GLOMERULAR FILTRATION RATE > 60 ML/MIN (60-); GLUCOSE 124 mg/dL (74-118); SODIUM 130 mmol/L (136-145)
[2020-04-02 11:10] LABS: MAGNESIUM 1.8 MG/DL (1.3-2.1); PHOSPHORUS 1.5 MG/DL (2.3-4.7)
[2020-04-02] MEDS: DONEPEZIL HCL 5 MG TAB PO SCH (21:42)
[2020-04-03] VITALS (8 sets, daily range): BP systolic 93–116; BP diastolic 47–58
[2020-04-03] MEDS: METOCLOPRAMIDE HCL 10 MG/2ML VIAL IV SCH ×4 (00:20→16:29)
[2020-04-03] MEDS: LEVOTHYROXINE SODIUM 100 MCG TAB PO SCH (05:27)
[2020-04-03 06:27] LABS: MAGNESIUM 1.9 MG/DL (1.3-2.1); PHOSPHORUS 1.3 MG/DL (2.3-4.7)
[2020-04-03 06:40] LABS: BASOPHILS % 0.2 % (0.0-1.0); EOSINOPHILS % 0.1 % (0.0-6.0); HEMATOCRIT 25.8 % (34.2-44.1); HEMOGLOBIN 7.8 g/dL (12.0-16.0); LYMPHOCYTES # (AUTO) 1.1 (1.0-3.2); LYMPHOCYTES % 6.8 % (18.0-39.1); MEAN CORPUSCULAR HEMOGLOBIN 28.9 pg (28-32); MEAN CORPUSCULAR HGB CONC 30.2 g/dL (31-35); MEAN CORPUSCULAR VOLUME 95.6 fL (81-99); MONOCYTES # (AUTO) 1.1 (0.2-0.8); MONOCYTES % 6.6 % (4.4-11.3); NEUTROPHILS % 85.6 % (38.7-80.0); PLATELET COUNT 145 x10e3/uL (140-360); RED CELL DISTRIBUTION WIDTH 14.4 % (11.7-14.4)
[2020-04-03 06:48] LABS: ANION GAP 11.7 mmol/L (8-16); BLOOD UREA NITROGEN 20 mg/dL (7-26); BUN/CREATININE RATIO 30 (6-25); CALCIUM 7.2 mg/dL (8.4-10.2); CARBON DIOXIDE 23 mmol/L (22-29); CHLORIDE 100 mmol/L (98-107); CREATININE, SERUM 0.66 mg/dL (0.57-1.11); EST GLOMERULAR FILTRATION RATE > 60 ML/MIN (60-); GLUCOSE 100 mg/dL (74-118); POTASSIUM 4.7 mmol/L (3.5-5.1); SODIUM 130 mmol/L (136-145)
[2020-04-03] MEDS: INSULIN LISPRO 100 UNIT/1 ML 3ML VIAL SQ SCH ×4 (07:30→21:00)
[2020-04-03] MEDS: ZINC OXIDE / BALSAM PERU 30 GM TUBE TOP SCH ×2 (09:00→21:33)
[2020-04-03] MEDS: BALSAM PERU/CASTOR OIL 60 GM OINT...G. TP SCH ×2 (09:00)
[2020-04-03] MEDS: METOPROLOL SUCCINATE 25 MG TAB XL PO SCH ×2 (09:08→16:42)
[2020-04-03] MEDS: PANTOPRAZOLE 40 MG 10ML VIAL IV SCH ×2 (09:08→16:29)
[2020-04-03] MEDS: DIGOXIN 0.125 MG TAB PO SCH (09:08)
[2020-04-03] MEDS ORDERED: SODIUM PHOSPHATE 15 MMOL in SODIUM CHLORIDE 0.9% 250ML 250 ML INJ ONE (11:00)
[2020-04-03] MEDS: DONEPEZIL HCL 5 MG TAB PO SCH (20:59)
[2020-04-04] VITALS (8 sets, daily range): BP systolic 87–139; BP diastolic 45–83
[2020-04-04] MEDS: ACETAMINOPHEN 325 MG TAB PO PRN (00:39)
[2020-04-04] MEDS: METOCLOPRAMIDE HCL 10 MG/2ML VIAL IV SCH ×4 (01:28→18:15)
[2020-04-04 05:09] LABS: BASOPHILS % 0.3 % (0.0-1.0); EOSINOPHILS # (AUTO) 0.1 (0.0-0.4); EOSINOPHILS % 0.7 % (0.0-6.0); HEMATOCRIT 24.5 % (34.2-44.1); HEMOGLOBIN 7.4 g/dL (12.0-16.0); LYMPHOCYTES # (AUTO) 1.2 (1.0-3.2); LYMPHOCYTES % 10.4 % (18.0-39.1); MEAN CORPUSCULAR HGB CONC 30.2 g/dL (31-35); MEAN CORPUSCULAR VOLUME 96.1 fL (81-99); MONOCYTES % 8.1 % (4.4-11.3); NEUTROPHILS # (AUTO) 9.5 (2.1-6.9); NEUTROPHILS % 79.9 % (38.7-80.0); PLATELET COUNT 131 x10e3/uL (140-360); RED BLOOD COUNT 2.55 x10e6/uL (3.6-5.1); RED CELL DISTRIBUTION WIDTH 14.4 % (11.7-14.4)
[2020-04-04] MEDS ORDERED: DIATRIZOATE MEGL/DIATRIZOA SOD 30 ML BTL PO ONE (05:28)
[2020-04-04 05:39] LABS: ALANINE AMINOTRANSFERASE 10 IU/L (0-55); ALBUMIN 1.4 g/dL (3.5-5.0); ALBUMIN/GLOBULIN RATIO 0.5 (0.8-2.0); ALKALINE PHOSPHATASE 115 IU/L (40-150); ANION GAP 8.8 mmol/L (8-16); BLOOD UREA NITROGEN 21 mg/dL (7-26); BUN/CREATININE RATIO 32 (6-25); CALCIUM 7.1 mg/dL (8.4-10.2); CARBON DIOXIDE 24 mmol/L (22-29); CHLORIDE 100 mmol/L (98-107); CREATININE, SERUM 0.65 mg/dL (0.57-1.11); EST GLOMERULAR FILTRATION RATE > 60 ML/MIN (60-); GLUCOSE 98 mg/dL (74-118); POTASSIUM 4.8 mmol/L (3.5-5.1); SODIUM 128 mmol/L (136-145)
[2020-04-04] MEDS: LEVOTHYROXINE SODIUM 100 MCG TAB PO SCH (05:56)
[2020-04-04] MEDS: INSULIN LISPRO 100 UNIT/1 ML 3ML VIAL SQ SCH ×4 (07:30→21:00)
[2020-04-04] MEDS: PANTOPRAZOLE 40 MG 10ML VIAL IV SCH ×2 (09:20→18:14)
[2020-04-04] MEDS: ZINC OXIDE / BALSAM PERU 30 GM TUBE TOP SCH ×2 (09:21→21:00)
[2020-04-04] MEDS: SODIUM CHLORIDE 1 GM TAB PO SCH ×3 (09:21→21:00)
[2020-04-04] MEDS: BALSAM PERU/CASTOR OIL 60 GM OINT...G. TP SCH ×2 (09:21)
[2020-04-04] MEDS: METOPROLOL SUCCINATE 25 MG TAB XL PO SCH ×2 (09:21→18:15)
[2020-04-04] MEDS: DIGOXIN 0.125 MG TAB PO SCH (09:21)
[2020-04-04] MEDS: MUPIROCIN 2% OINT 22 GM TUBE TOP SCH ×2 (09:21→18:15)
[2020-04-04] MEDS: DONEPEZIL HCL 5 MG TAB PO SCH (21:00)
[2020-04-05] VITALS (8 sets, daily range): BP systolic 106–124; BP diastolic 48–88
[2020-04-05] MEDS: LEVOTHYROXINE SODIUM 100 MCG TAB PO SCH (03:44)
[2020-04-05] MEDS: METOCLOPRAMIDE HCL 10 MG/2ML VIAL IV SCH ×4 (05:44→17:27)
[2020-04-05] MEDS: INSULIN LISPRO 100 UNIT/1 ML 3ML VIAL SQ SCH ×4 (07:30→21:00)
[2020-04-05] MEDS ORDERED: BUPIVACAINE 0.5%/EPI 30 ML SDV INJ ONE (08:56)
[2020-04-05] MEDS ORDERED: LIDOCAINE HCL 2% 30 ML TUBE ONE (08:56)
[2020-04-05] MEDS: PANTOPRAZOLE 40 MG 10ML VIAL IV SCH ×3 (09:00→17:29)
[2020-04-05] MEDS ORDERED: COLLAGENASE 5 GM TUBE TOP SCH (09:00)
[2020-04-05] MEDS: DIGOXIN 0.125 MG TAB PO SCH ×2 (09:00→11:57)
[2020-04-05] MEDS: MUPIROCIN 2% OINT 22 GM TUBE TOP SCH ×3 (09:00→17:27)
[2020-04-05] MEDS: METOPROLOL SUCCINATE 25 MG TAB XL PO SCH ×3 (09:00→17:27)
[2020-04-05] MEDS: SODIUM CHLORIDE 1 GM TAB PO SCH ×3 (09:00→21:49)
[2020-04-05] MEDS: ZINC OXIDE / BALSAM PERU 30 GM TUBE TOP SCH ×3 (09:00→21:50)
[2020-04-05] MEDS: BALSAM PERU/CASTOR OIL 60 GM OINT...G. TP SCH ×4 (09:00→11:58)
[2020-04-05] MEDS ORDERED: PROPOFOL IV EMULSION 10 MG/ML 20 ML VIAL ONE (12:19)
[2020-04-05] MEDS ORDERED: SEVOFLURANE INHAL SOLN 250 ML PEN BTL ONE (12:19)
[2020-04-05] MEDS ORDERED: CEFAZOLIN SOD 1 GM VIAL ONE (12:19)
[2020-04-05] MEDS ORDERED: LIDOCAINE HCL 2% LOCAL INJ 5 ML SDV VIAL INJ ONE (12:19)
[2020-04-05] MEDS: DONEPEZIL HCL 5 MG TAB PO SCH (21:49)
[2020-04-06] VITALS: BP 116/62
[2020-04-06] MEDS: METOCLOPRAMIDE HCL 10 MG/2ML VIAL IV SCH (00:08)
[2020-04-06 04:00] VITALS: BP 92/65
[2020-04-06] MEDS: LEVOTHYROXINE SODIUM 100 MCG TAB PO SCH (05:54)
[2020-04-06 06:48] LABS: HEMATOCRIT 25.4 % (34.2-44.1); HEMOGLOBIN 7.7 g/dL (12.0-16.0)
[2020-04-06] MEDS ORDERED: PANTOPRAZOLE SODIUM 40 MG SUSPDR.PKT PEG SCH (07:30)
[2020-04-06 08:21] VITALS: BP 92/55
[2020-04-06 08:42] VITALS: BP 92/55
== END 2020-04-06 11:12 | DRG 393 ==
LOC: ER 15:32 → ERHOLD 21:10 → MED/SURG2 03-22 12:00 → OBSVTOIN 03-24 06:45
PROVIDERS: ADMIT Internal Medicine; ATTEND Internal Medicine
PROC: 0DBP8ZX Excision of Rectum, Via Natural or Artificial Opening Endoscopic, Diagnostic (ICD-10-PCS; 2020-03-26)
PROC: 0DJ08ZZ Inspection of Upper Intestinal Tract, Via Natural or Artificial Opening Endoscopic (ICD-10-PCS; 2020-03-30)
PROC: 0DH68UZ Insertion of Feeding Device into Stomach, Via Natural or Artificial Opening Endoscopic (ICD-10-PCS; 2020-03-30)
PROC: 0DBP8ZZ Excision of Rectum, Via Natural or Artificial Opening Endoscopic (ICD-10-PCS; principal; 2020-04-05 10:00)
DX: K62.1 Rectal polyp (principal); E43 Unspecified severe protein-calorie malnutrition; G93.41 Metabolic encephalopathy; B25.8 Other cytomegaloviral diseases; I48.20 Chronic atrial fibrillation, unspecified; Z68.1 Body mass index [BMI] 19.9 or less, adult; B37.49 Other urogenital candidiasis; E87.1 Hypo-osmolality and hyponatremia; N17.9 Acute kidney failure, unspecified; L89.302 Pressure ulcer of unspecified buttock, stage 2; N18.30 Chronic kidney disease, stage 3 unspecified; F03.90 Unspecified dementia, unspecified severity, without behavioral disturbance, psychotic disturbance, mood disturbance, and anxiety; M06.9 Rheumatoid arthritis, unspecified; I12.9 Hypertensive chronic kidney disease with stage 1 through stage 4 chronic kidney disease, or unspecified chronic kidney disease; Z79.01 Long term (current) use of anticoagulants; K64.9 Unspecified hemorrhoids; E87.6 Hypokalemia; K29.70 Gastritis, unspecified, without bleeding; K20.90 Esophagitis, unspecified without bleeding; Z20.828 Contact with and (suspected) exposure to other viral communicable diseases; R33.9 Retention of urine, unspecified; Z85.850 Personal history of malignant neoplasm of thyroid
CPT/HCPCS: 36415; 36600; 43246; 45380; 51700; 70450; 74018; 74176; 80048; 80053; 81001; 82140; 82550; 82553; 82607; 82728; 82746; 82805; 82948; 83540; 83735; 84100; 84295; 84466; 84484; 85014; 85018; 85025; 85045; 85610; 87086; 88305; 88342; 93005; 97139; 99251; 99284; G0378; J0690; J0696; J1450; J1610; J1756; J2001; J2765; J3475; J3480; J7030; J7050; U0002

== ENCOUNTER 2020-07-09 16:08 | Emergency (ER) | payer MEDICARE ==
[~2020-07-09] VITALS: Ht 165.1 cm; Wt 61.2 kg
[~2020-07-09 16:08] MED LIST changes: +ALENDRONATE SOD70 MG PO; +ARICEPT5 MG PO; +DIFLUCAN100 MG PO; +FAMOTIDINE20 MG PO; +FLANDERS BUTTOC30 GM TOP; +KEFLEX500 MG PO; +PANTOPRAZOLE SO40 MG PO; +ULTRAM50 MG PO
== END 2020-07-09 16:46 | disposition home or self-care (01) ==
LOC: ER 16:22
DX: Z43.1 Encounter for attention to gastrostomy (principal)
CPT/HCPCS: 99281